=== PATIENT | male | born 1960 | race Caucasian/White ===

== ENCOUNTER 2017-01-21 11:24 | Inpatient (IN) | payer MEDICARE ==
[~2017-01-21] VITALS: Ht 182.8 cm; Wt 81.4 kg
[2017-01-21] VITALS (9 sets, daily range): BP systolic 121–145; BP diastolic 78–91
--- NOTE | ~2017-01-21 | CON ---
[place], [place] REPORT OF CONSULTATION NAME: ERROL VELAZQUEZ UNIT #: [id number] ROOM: 420 DOCTOR: MARIA GUADALUPE BEVERLY MD BIRTHDATE: [birth year] DOS: 01/22/2017 HISTORY OF PRESENT ILLNESS: This is a 56-year-old -[place] man who is severely challenged mentally. He lives at home with his who has impaired hearing, daughter also has some hearing problem and speech problem. This history was obtained from the daughter, which was rather vague. He had been telling her that some neighbors are trying to kill him and he has some paranoia here as well. He had gone to the bathroom and complained of chest pain and the daughter was concerned and he was brought to the Emergency Department. He did not have any palpitations and did not pass out. It is not clear how long the pain lasted nor do we know whether he had any sweating or nausea with it. He has not been having any difficulty breathing at night or when he is walking down and no swelling in the legs. PAST MEDICAL HISTORY: Includes dyslipidemia, essential hypertension, GERD, myocardial infarction and heart catheterization in 2009 and he had a stent deployed at that time, mentally . SOCIAL HISTORY: Quit smoking about 7 years ago. No alcohol use. Lives at home. FAMILY HISTORY: Has some mental issues as well. HOME MEDICATIONS: Include aspirin 81 daily, atorvastatin 20 daily, carvedilol 3.25 mg daily, famotidine 20 mg b.i.d., lisinopril 5 daily and omeprazole 20 mg daily. PHYSICAL EXAMINATION: GENERAL: The patient is alert, sitting. He is not able to answer questions. All nodded yes or no to questions. Complexion is fine. Afebrile. There is no thyromegaly or finger clubbing. VITAL SIGNS: Pulse is irregular at 80, blood pressure 132/82. NECK: Normal JVP. No bruit in the neck. CARDIOVASCULAR: Cardiac auscultation unremarkable. There is no cardiomegaly. Pedal pulses are palpable. EXTREMITIES: There is no edema of lower extremities. RESPIRATORY: He is not tachypneic. Few rhonchi are present, but breath sounds are fairly decent bilaterally. DIAGNOSTIC STUDIES: An ECG showed normal sinus rhythm with poor R-wave progression, possible old anteroseptal myocardial infarction. Troponin I levels are normal. IMPRESSION: This patient with known coronary artery disease had chest pain. Because of patient's mental disability, it is not clear how significant this symptom is. He has ruled out for an acute myocardial infarction. My recommendation would be to perform a Lexiscan Cardiolite study on this gentleman and Dr. De La Rosa will do this tomorrow when he comes here. I thank you on behalf of Dr. De La Rosa for this consult. [place], [place] REPORT OF CONSULTATION NAME: ERROL VELAZQUEZ UNIT #: [id number] ROOM: 420 DOCTOR: MARIA GUADALUPE BEVERLY MD BIRTHDATE: [birth year] MARIA GUADALUPE BEVERLY MD CM:CONSTR:REPORT OF CONSULTATION 1234 01/23/17 0422 interface REYMUNDO DE LA ROSA MD
--- NOTE | ~2017-01-21 | CON ---
[place], [place] REPORT OF CONSULTATION NAME: ERROL VELAZQUEZ UNIT #: [id number] ROOM: 420 DOCTOR: ESTEBAN SAUNDERS ED.D (IVETTE) BIRTHDATE: [birth year] DOS: 01/23/2017 HISTORY OF PRESENT ILLNESS: The patient is a 56-year-old male referred by the hospitalist for competency evaluation. At the present time, this patient is on the 4th Floor, at [facility]. He does have 2 sisters and his one sister, Ifrah, is wishing to file for guardianship. His other sister is in agreement with this due to the fact she has a severe hearing deficit and believes that her sister, Ifrah, would be best to be the guardian for this patient. They have contact an fire patroller in [place], [place] to file the paperwork with probate court in [facility]. This patient's family physician is Dr. Caballero. His medical history is pertinent for intellectual disability, moderate; hypertension; GERD; coronary artery disease; history of myocardial infarction. His medications include aspirin, atorvastatin, Pepcid, lisinopril, and omeprazole. 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 He does not use any substances, but he did quit smoking 7 years ago. He uses no alcoholic beverages whatsoever. This patient could not actually tell me where he was with the date. He has a significant cognitive limitation. It is clear that guardianship should be established for this patient. I spoke at length with the sister, Ifrah, and I will complete paperwork for guardianship for the patient to be able to have a guardian appointed to make all decisions on his behalf. DIAGNOSIS: Intellectual disability--moderate. RECOMMENDATIONS: In my opinion, this patient should have a guardian appointed by a probate court in [facility]. Thank you very much for this consult. ESTEBAN SAUNDERS ED.D CM:CONSTR:REPORT OF CONSULTATION 1600 01/24/17 0619 interface
--- NOTE | ~2017-01-21 | CON ---
[place], [place] REPORT OF CONSULTATION NAME: ERROL VELAZQUEZ UNIT #: [id number] ROOM: 420 DOCTOR: SUSIE MCCARTY BIRTHDATE: [birth year] DOS: HISTORY OF PRESENT ILLNESS: He is a 56-year-old man who came in with his family due to complaints of chest pain. He has a history of some intellectual disability and he lives with his sister who is his primary residential life director. He has been having some paranoid thoughts, thinks the neighbors are going to beat him up and they decided to bring him in to have him evaluated. They have been doing cardiac workup since he has been here on the floor, but psych is consulted as far as the ongoing anxiety that he seems to be having and paranoia. PAST MEDICAL HISTORY: Hypertension, GERD. He does have a history of an IL and high cholesterol. MENTAL STATUS: He is awake and alert. He seems to be oriented to himself, not necessarily to time. His speech is garbled, but he is able to make himself understood. His voice is low tone. He denies any audio or visual hallucinations, delusions or paranoia at this time. He does have some slowed processing for sure. According to the family, last night he was fearful that someone was going to get him after he heard some pounding that they believed was construction that was happening here at the hospital. They said that he has definitely been getting worse at night. He becomes very anxious and then very panicky. His appetite has been good while he has been here in the hospital as well. No complaints of pain or anything like that. DIAGNOSIS: Panic disorder with anxiety. PLAN: I added Celexa 20 mg every day to help combat that anxiety and hopefully that will help him through the day, so that he can sleep better at night. We will have social service manager help them to set up outpatient treatment as needed. His vitamin D level was also low, so we will add vitamin D dosage every week. He has very good family support and the plan according to the family who were in the room right now is that he return home under their care. We will continue to monitor him during his stay, support as needed and hopefully he will return to the least restrictive environment as soon as he is medically stable. Susie Mccarty NP CM:CONSTR:REPORT OF CONSULTATION 01/23/17 2206 interface
--- NOTE | ~2017-01-21 | ST ---
[place], [place] EXERCISE STRESS TEST REPORT NAME: [facility]QUEZ [id number] UNIT #: [id number] ROOM: 420 DOCTOR: REYMUNDO CARABALLO MD BIRTHDATE: [birth year] DOS: LEXISCAN PORTION OF THE LEXISCAN CARDIOLITE Baseline cardiogram, sinus rhythm with poor R-wave progression with nonspecific ST-T changes, 0.4 mg Lexiscan, duration of 10 seconds. FINAL IMPRESSION: No new EKG changes with Lexiscan. No chest pain with Lexiscan. No dysrhythmia with Lexiscan. Blood pressure and heart rate response was normal. Nuclear images will be reported separately. REYMUNDO CARABALLO MD CM:STRESS:EXERCISE STRESS TEST REPORT [id number] 1950 REYMUNDO CARABALLO MD
[~2017-01-21 11:24] MED LIST: ASPIRIN; ASPIRIN ADULT L81 M1 PO; ATORVASTATIN CA20 M1 PO; CARVEDILOL3.125 MG; LIPITOR80 MG; LISINOPRIL5 MG PO; PEPCID20 MG PO; PLAVIX75 MG
[2017-01-21 11:42] LABS: BASO # 0.1 10*3/uL (0.0-0.1); BASO % 0.6 % (0.0-1.0); EOS # 0.3 10*3/uL (0.0-0.4); EOS % 2.9 % (1.0-4.0); HEMATOCRIT 45.1 % (42.0-52.0); HEMOGLOBIN 15.6 g/dl (14.0-18.0); LYMPH # 2.1 10*3/uL (1.3-4.4); LYMPH % 23.6 % (27.0-41.0); MEAN CELL VOLUME 88.8 fl (80.0-94.0); MEAN CORPUSCULAR HGB 30.7 pg (27.0-31.0); MEAN CORPUSCULAR HGB CONC 34.6 g/dl (33.0-37.0); MEAN PLATELET VOLUME 10.2 fl (9.6-12.3); MONO # 0.9 10*3/uL (0.1-1.0); MONO % 9.8 % (3.0-9.0); NEUT # 5.5 10*3/uL (2.3-7.9); NEUT % 62.6 % (47.0-73.0); PLATELET COUNT AUTOMATED 307 10*3/uL (130-400); RED BLOOD COUNT 5.08 10*6/uL (4.50-5.90); RED CELL DISTRI WIDTH 12.7 % (0-14.5); WHITE BLOOD COUNT 8.7 10*3/uL (4.8-10.8)
[2017-01-21 11:58] LABS: INTERNATIONAL NORM RATIO 1.1 (2.0-3.5); PROTHROMBIN TIME 11.7 SECONDS (9.0-12.4)
[2017-01-21 11:59] LABS: ALBUMIN 3.7 gm/dl (3.1-4.5); ALKALINE PHOSPHATASE 112 U/L (45-117); BILIRUBIN, TOTAL 0.8 mg/dl (0.2-1.0); BUN 10 mg/dl (7-24); CARBON DIOXIDE 22 mmol/L (21-32); CHLORIDE 107 mmol/L (98-107); EST GLOM FILT AFRICAN AMERICAN > 60 ml/min; GLUCOSE 109 mg/dL (65-99); POTASSIUM 3.9 mmol/L (3.5-5.1); SGOT/AST 23 IU/L (3-35); SGPT/ALT 38 U/L (12-78); SODIUM 138 mmol/L (136-145); TOTAL PROTEIN 7.5 gm/dL (6.4-8.2)
[2017-01-21 12:05] LABS: TROPONIN I < 0.015 ng/ml (<0.045)
[2017-01-21] MEDS ORDERED: OMEPRAZOLE D/R20 MG PO (13:30)
[2017-01-21 18:20] LABS: CKMB 0.8 ng/ml (0.5-3.6); CPK 72 U/L (39-308)
[2017-01-21 18:21] LABS: TROPONIN I < 0.015 ng/ml (<0.045)
[2017-01-22] VITALS: BP 129/89
[2017-01-22 00:26] LABS: CPK 75 U/L (39-308)
[2017-01-22 00:28] LABS: TROPONIN I < 0.015 ng/ml (<0.045)
[2017-01-22 06:21] LABS: BASO % 0.5 % (0.0-1.0); EOS # 0.2 10*3/uL (0.0-0.4); EOS % 1.8 % (1.0-4.0); HEMATOCRIT 46.5 % (42.0-52.0); HEMOGLOBIN 15.6 g/dl (14.0-18.0); LYMPH # 2.4 10*3/uL (1.3-4.4); LYMPH % 28.5 % (27.0-41.0); MEAN CELL VOLUME 90.3 fl (80.0-94.0); MEAN CORPUSCULAR HGB 30.3 pg (27.0-31.0); MEAN CORPUSCULAR HGB CONC 33.5 g/dl (33.0-37.0); MEAN PLATELET VOLUME 10.1 fl (9.6-12.3); MONO # 0.9 10*3/uL (0.1-1.0); MONO % 10.2 % (3.0-9.0); NEUT % 58.5 % (47.0-73.0); PLATELET COUNT AUTOMATED 299 10*3/uL (130-400); RED BLOOD COUNT 5.15 10*6/uL (4.50-5.90); RED CELL DISTRI WIDTH 12.9 % (0-14.5); WHITE BLOOD COUNT 8.5 10*3/uL (4.8-10.8)
[2017-01-22 06:35] LABS: CPK 81 U/L (39-308)
[2017-01-22 06:38] LABS: TROPONIN I < 0.015 ng/ml (<0.045)
[2017-01-22 06:54] LABS: ALBUMIN 3.5 gm/dl (3.1-4.5); ALKALINE PHOSPHATASE 107 U/L (45-117); BILIRUBIN, TOTAL 0.8 mg/dl (0.2-1.0); BUN 13 mg/dl (7-24); CARBON DIOXIDE 26 mmol/L (21-32); CHLORIDE 105 mmol/L (98-107); CHOLESTEROL 96 mg/dL (<200); EST GLOM FILT AFRICAN AMERICAN > 60 ml/min; GLUCOSE 104 mg/dL (65-99); HDL CHOLESTEROL 47 mg/dl (40-60); LDL CHOLESTEROL 36 mg/dL (9-159); MAGNESIUM 2.2 mg/dL (1.5-2.1); POTASSIUM 3.8 mmol/L (3.5-5.1); SGOT/AST 18 IU/L (3-35); SGPT/ALT 37 U/L (12-78); SODIUM 139 mmol/L (136-145); TOTAL PROTEIN 7.6 gm/dL (6.4-8.2); TRIGLYCERIDES 65 mg/dl (<150); VLDL CHOLESTEROL 13 mg/dL (6-40)
[2017-01-22 07:33] LABS: VITAMIN D, 25-HYDROXY 22.2 ng/mL (30-100)
[2017-01-22 07:34] LABS: FOLIC ACID 13.91 ng/mL (>5.38)
[2017-01-22 08:00] VITALS: BP 138/82
[2017-01-22 12:00] VITALS: BP 115/75
[2017-01-22 12:34] LABS: BILIRUBIN NEGATIVE (NEGATIVE); BLOOD NEGATIVE (NEGATIVE); CLARITY CLEAR (CLEAR); COLOR YELLOW (YELLOW); GLUCOSE NEGATIVE (NEGATIVE); KETONE NEGATIVE (NEGATIVE); LEUKO ESTERASE NEGATIVE (NEGATIVE); NITRITE NEGATIVE (NEGATIVE); PROTEIN NEGATIVE (NEGATIVE); SPECIFIC GRAVITY <= 1.005 (1.005-1.030); UROBILINOGEN 0.2 E.U./dl (0.2-1.0)
[2017-01-22 12:42] LABS: EPITHELIAL CELLS 0-2; WBC 0-2 wbc/hpf (0-5)
[2017-01-22 16:00] VITALS: BP 125/81
[2017-01-22 20:00] VITALS: BP 131/56
[2017-01-23] VITALS: BP 113/77
[2017-01-23 03:00] VITALS: BP 131/85
[2017-01-23 08:00] VITALS: BP 128/75
[2017-01-23 12:00] VITALS: BP 120/79
[2017-01-23 16:00] VITALS: BP 125/82
[2017-01-23 20:00] VITALS: BP 144/77
[2017-01-24] VITALS: BP 120/73
[2017-01-24 08:02] VITALS: BP 132/82
[2017-01-24 12:00] VITALS: BP 120/74
[2017-01-24] MEDS ORDERED: HYDROXYZINE PAM25 M1 PO (13:23)
[2017-01-24] MEDS ORDERED: VITAMIN D50000 I3 PO (13:23)
[2017-01-24] MEDS ORDERED: CITALOPRAM HYDR20 MG PO (13:23)
== END 2017-01-24 15:20 | disposition home or self-care (01) | DRG 392 ==
LOC: ED 11:24 → 4E 12:20 → EDHOLD 12:20 → 4E 12:59
PROVIDERS: Hospitalist; Internal Medicine; Nurse Practitioner Family
PROC: 4A02XM4 Measurement of Cardiac Total Activity, External Approach (ICD-10-PCS; principal; 2017-01-21)
DX: K21.9 Gastro-esophageal reflux disease without esophagitis (principal); F22 Delusional disorders; I10 Essential (primary) hypertension; E78.5 Hyperlipidemia, unspecified; I25.10 Atherosclerotic heart disease of native coronary artery without angina pectoris; E78.00 Pure hypercholesterolemia, unspecified; F41.0 Panic disorder [episodic paroxysmal anxiety]; F71 Moderate intellectual disabilities; Z95.5 Presence of coronary angioplasty implant and graft; Z82.49 Family history of ischemic heart disease and other diseases of the circulatory system; I25.2 Old myocardial infarction; Z80.9 Family history of malignant neoplasm, unspecified; Z79.82 Long term (current) use of aspirin; Z79.899 Other long term (current) drug therapy; Z87.891 Personal history of nicotine dependence; Z81.8 Family history of other mental and behavioral disorders

== ENCOUNTER 2017-01-25 22:01 | Emergency (ER) | payer MEDICARE, OTHER ==
[~2017-01-25] VITALS: Ht 170.1 cm; Wt 68.0 kg
[~2017-01-25 22:01] MED LIST changes: +CITALOPRAM HYDR20 MG PO; +HYDROXYZINE PAM25 M1 PO; +OMEPRAZOLE D/R20 MG PO; +VITAMIN D50000 I3 PO
[2017-01-25 22:34] LABS: BASO # 0.1 10*3/uL (0.0-0.1); BASO % 0.5 % (0.0-1.0); EOS # 0.2 10*3/uL (0.0-0.4); EOS % 2.1 % (1.0-4.0); HEMATOCRIT 42.8 % (42.0-52.0); HEMOGLOBIN 14.7 g/dl (14.0-18.0); IG # 0.1 10*3/uL (0.0-0.1); LYMPH # 3.3 10*3/uL (1.3-4.4); MEAN CELL VOLUME 88.8 fl (80.0-94.0); MEAN CORPUSCULAR HGB 30.5 pg (27.0-31.0); MEAN CORPUSCULAR HGB CONC 34.3 g/dl (33.0-37.0); MEAN PLATELET VOLUME 9.9 fl (9.6-12.3); MONO # 1.1 10*3/uL (0.1-1.0); MONO % 10.8 % (3.0-9.0); NEUT # 5.4 10*3/uL (2.3-7.9); NEUT % 53.1 % (47.0-73.0); PLATELET COUNT AUTOMATED 304 10*3/uL (130-400); RED BLOOD COUNT 4.82 10*6/uL (4.50-5.90); RED CELL DISTRI WIDTH 12.6 % (0-14.5); WHITE BLOOD COUNT 10.1 10*3/uL (4.8-10.8)
[2017-01-25 22:49] LABS: ALBUMIN 3.7 gm/dl (3.1-4.5); ALKALINE PHOSPHATASE 98 U/L (45-117); BILIRUBIN, TOTAL 0.9 mg/dl (0.2-1.0); BUN 13 mg/dl (7-24); CARBON DIOXIDE 25 mmol/L (21-32); CHLORIDE 103 mmol/L (98-107); EST GLOM FILT AFRICAN AMERICAN > 60 ml/min; GLUCOSE 108 mg/dL (65-99); POTASSIUM 3.9 mmol/L (3.5-5.1); SGOT/AST 20 IU/L (3-35); SGPT/ALT 35 U/L (12-78); SODIUM 137 mmol/L (136-145); TOTAL PROTEIN 7.4 gm/dL (6.4-8.2)
[2017-01-25 23:12] LABS: BILIRUBIN NEGATIVE (NEGATIVE); BLOOD TRACE-INTACT (NEGATIVE); CLARITY CLEAR (CLEAR); COLOR YELLOW (YELLOW); GLUCOSE NEGATIVE (NEGATIVE); KETONE NEGATIVE (NEGATIVE); LEUKO ESTERASE NEGATIVE (NEGATIVE); NITRITE NEGATIVE (NEGATIVE); PH 5.5 (5.0-9.0); PROTEIN NEGATIVE (NEGATIVE); SPECIFIC GRAVITY <= 1.005 (1.005-1.030); UROBILINOGEN 0.2 E.U./dl (0.2-1.0)
[2017-01-25 23:20] LABS: BACTERIA TRACE; EPITHELIAL CELLS 0-2; MUCOUS TRACE; URINE REFLEX COMMENT NO (NO); WBC 0-2 wbc/hpf (0-5)
[2017-01-25 23:22] LABS: URINE AMPHETAMINES < 1000 (1000ng/ml); URINE BARBITURATES < 200 (200ng/ml); URINE COCAINE < 300 (300ng/ml)
== END 2017-01-26 00:18 | disposition home health service (06) ==
LOC: ED 22:01
PROVIDERS: Emergency Medicine
DX: F33.9 Major depressive disorder, recurrent, unspecified (principal); F41.9 Anxiety disorder, unspecified; I10 Essential (primary) hypertension; K21.9 Gastro-esophageal reflux disease without esophagitis; I25.2 Old myocardial infarction; Z79.899 Other long term (current) drug therapy

== ENCOUNTER 2017-01-25 23:40 | Inpatient (IN) | payer MEDICARE, OTHER ==
[~2017-01-25] VITALS: Ht 162.5 cm; Wt 77.6 kg
--- NOTE | ~2017-01-25 | PR ---
[place], [place] PROGRESS NOTE NAME[id number] UNIT #: [id number] ROOM: 314 DOCTOR: SSUIE MCCARTY BIRTHDATE: [birth year] DOS: 01/29/2017 CHIEF COMPLAINT: This morning, the patient looked at me and smiled. SUMMARY OF THE VISIT: He was in the dining room, eating his breakfast, did not really make eye contact. During the most of the interaction that I had with him, he would just look at me and smile and do a little laugh. They did have to give him Ativan and Geodon over the weekend for some delusions that he was having. Dr. Weber just increased Latuda yesterday, so we will see how he does with that. When I asked him if he had a good weekend, he did nod and said that he did. MENTAL STATUS EXAMINATION: He is alert and oriented at least to self. I do not believe that he is oriented to place and time. He clearly is attending to unforseen others. PLAN: Since his Latuda was just increased yesterday, we will monitor him through the day today and see how he does. He has not required more p.r.n. since the ones that he got on 01/27/2017. So, we will monitor and see what that medication change does. We will continue to try to engage him in individual and bernal milieu and discharge him to the least restrictive environment as soon as he is psychologically stable. Susie Mccatry NP CM:PNTRANS 0 SSUIE MCCARTY 01/29/17 0952 interface
--- NOTE | ~2017-01-25 | DS ---
[place], [place] DISCHARGE SUMMARY NAME: ERROL VELAZQUEZ UNIT #: [id number] ROOM: 314 DOCTOR: SUSIE MCCARTY BIRTHDATE: [birth year] DOS: 02/05/2017 SUMMARY OF THE VISIT: The patient is a 56-year-old white male who was admitted to the unit 01/26/2017 with a diagnosis of major depression. He was originally admitted to the medical floor. Once he stabilized on the medical floor, it was found that his psychiatric symptoms still needed to be managed and so he was brought to [facility]. Also, his psychiatric problems are exacerbated more because he has mild MR. He lives at home with his sisters and they provide his primary care. On admission, he had been acutely manic for approximately 3 days. He had not slept and increasingly paranoid and very on edge. He was having audio and visual hallucinations and upon arrival to the Behavioral Health Unit, he became verbally and physically threatening to staff when they addressed him as Errol rather than Nando or Dutch. PAST MEDICAL HISTORY: Includes coronary artery disease, hyperlipidemia, hypertension, GERD. He has a history of an HI and a history of bipolar as well as mild MR. ALLERGIES: He has no allergies. MENTAL STATUS ON DISCHARGE: Today, he is bright, euthymic, laughing, talking, very excited about going home, has had no further audiovisual hallucination over the past few days. He is more talkative. When ____ this morning, he did say alright and then he started talking about what was on TV, so he is doing much better from a mental status standpoint than he was when he came in. DIAGNOSIS: Major depression. DISPOSITION: He will be discharged home with his sisters who will provide his primary care. His scripts have been electronically transmitted to his pharmacy and he is discharged in stable psychiatric condition. [place], [place] DISCHARGE SUMMARY NAME: ERROL VELAZQUEZ UNIT #: [id number] ROOM: 314 DOCTOR: SUSIE MCCARTY BIRTHDATE: [birth year] Susie Mccarty NP CM:DISCHARG [phone] SUSIE ROWELIP 02/05/17 1042 interface
--- NOTE | ~2017-01-25 | PR ---
[place], [place] PROGRESS NOTE NAME: [facility]QUEZ [id number] UNIT #: [id number] ROOM: 314 DOCTOR: SUSIE MCCARTY BIRTHDATE: [birth year] DOS: 02/03/2017 CHIEF COMPLAINT: This morning, the patient smiled and waved. SUMMARY OF THE VISIT: He was again sitting in the dining room at a table by himself. When I said hello to him, he did smile and waved his hand above his head. He is essentially nonverbal. He remains confused, has had less of the mood lability and agitation overnight. He does not appear to be attending to internal stimuli at this time. No side effects are evident from his Latuda or his Depakote. He continues to need prompting and assistance with his ADLs, but he seems to be tolerating his current medications well. MENTAL STATUS EXAMINATION: He is alert. He is oriented to self, place, not to time. He is still showing improvement in his behavioral symptoms. PLAN: Discharge him to a possible placement for assistance with his ADLs and maintaining his wellbeing. We will continue to engage him in individual and bernal milieu and plan to discharge him to the least restrictive environment early next week or when he is psychiatrically stable. Susie Mccarty NP CM:DARIA [id number] SUSIE MCCARTY 02/03/17 1300 interface
--- NOTE | ~2017-01-25 | WRIGHTHP ---
[place], [place] PATIENT HISTORY AND PHYSICAL EXAM NAME: [facility]QUE[id number] UNIT #: [id number] ROOM: 314 DOCTOR: ANA GAMEZ MD BIRTHDATE: [birth year] DOS: 01/26/2017 CHIEF COMPLAINT: "Yep." SUMMARY OF THE VISIT: This is a 56-year-old white male who was initially admitted due to ongoing medical difficulties. The patient from a psychiatric standpoint suffers from mild mental retardation. He resides with his sisters and has had a significant alteration in mental status. The patient has been acutely manic and has not slept in 3 days prior to him being admitted medically. Additionally, he has been increasingly paranoid and very on edge. He is openly admitted to both visual and auditory hallucinations. Upon admission to the psychiatric unit, the patient became verbally and physically threatening to staff when they addressed him by his name Errol and stated at that time, his name is Nando or Preston. The patient apparently has a lengthy history of psychiatric illness. He is admitted now to re-stabilize on medication, to engage in individual and bernal milieu activity with the ultimate plan to return home with the least restrictive environment when psychiatrically stable. PAST MEDICAL HISTORY: Remarkable for coronary artery disease, hyperlipidemia, hypertension, GERD, history of myocardial infarction and a history of bipolar disorder as well as mild MR. MENTAL STATUS: My mental status examination this morning was somewhat limited. The patient did respond to his name when I called out Ronald. He made eye contact. He localize the word Yep and on multiple occasions, as I attempted to engage him, he would either shake his head or make inaudible sounds. He did not speak to me beyond that. He did not exhibit any agitation towards me as well. DIAGNOSIS: Bipolar, type 1, mixed, with psychotic features and mild mental retardation. PLAN: I will go ahead and start him on Latuda 40 mg at bedtime to act both as a mood stabilizer and as an antipsychotic. We will increase this as needed and as tolerated. We will discuss with medical social worker to talk to the sisters who are applying for guardianship as to where they foresee there brother being discharged once he is stable. We will help facilitate the most appropriate placement once he is stable. We will engage in individual and bernal milieu activity with the plan then to discharge to this environment. [place], [place] PATIENT HISTORY AND PHYSICAL EXAM NAME: ERROL VELAZQUEZ UNIT #: [id number] ROOM: 314 DOCTOR: ANA GAMEZ MD BIRTHDATE: [birth year] ANA GAMEZ MD CM:HISPHYS:PATIENT HISTORY AND PHYSICAL EXAMINATION ANA GAMEZ MD 01/26/1734 interface
--- NOTE | ~2017-01-25 | PR ---
[place], [place] PROGRESS NOTE NAME: [facility]QUEZ [id number] UNIT #: [id number] ROOM: 314 DOCTOR: SUSIE MCACRTY BIRTHDATE: [birth year] DOS: 02/01/2017 CHIEF COMPLAINT: This morning "I got 2 stickers." SUMMARY OF THE VISIT: The patient was seen in the dining room where he was getting ready to have breakfast. He was watching TV, laughing. He was more interactive today than he has been previously. He does have a hearing for guardianship tomorrow for possible placement. We titrated up his Depakote in the evening last night, which seems to help him. Staff report that he slept very well last night, had no crying or yelling out behavior. PLAN: His next valproic acid level is due tomorrow. We will see how that is and then continue to titrate that medication and engage him in individual and bernal milieu, discharging him to the least restrictive environment when he is psychiatrically stable. Susie Mccarty NP CM:PNALISON [phone] SUSIE MCCARTY 02/01/172154 interface
--- NOTE | ~2017-01-25 | PR ---
[place], [place] PROGRESS NOTE NAME: [facility]QUE[id number] UNIT #: [id number] ROOM: 314 DOCTOR: ANA GAMEZ MD BIRTHDATE: [birth year] DOS: 02/02/2017 CHIEF COMPLAINT: The patient gave me a thumbs up sign. SUMMARY OF THE VISIT: The patient was attempted to be interviewed in the dining area where he was sitting at a table by himself. As I approached, he nodded and gave me a thumbs up sign. He again was nonverbal with me and when he eventually did talk it was simple yep or nope. Nurses report that he continues to still exhibit mood lability and occasionally will become increasingly agitated, especially around select peers. The patient does also still seem to be responding to unforeseen others and when left alone and monitored from far you can see him responding to internal stimulate. The patient does seem to be tolerating the current medication regimen well. I see no evidence of sedation or somnolence. Likewise, I see no tardive dyskinesia or extrapyramidal symptoms. He remains grossly confused and disoriented and requires a great deal of support and redirection to maintain ADLs. MENTAL STATUS: He is alert and oriented to person, place, but not time. Mood still is labile and at times unpredictable; however, there is a steady trend in improvement. He does still experience psychotic symptoms and delusions. Memory is hard to assess because his inability or lack of desire to cooperate. PLAN: I will maintain his current psychotropic regimen. His valproic acid level is therapeutic at 92.8 and I see no side effects suggestive of valproic acid toxicity. He is tolerating the Latuda well and likewise I see no symptoms suggestive of side effects from the Latuda. We are awaiting word from the court regarding emergency guardianship so that ultimately the family can assist in placement, so that his needs are more adequately met. Meanwhile, we will continue to engage him in individual and bernal milieu activity with the plan to return to the least restrictive environment when psychiatrically stable. ANA GAMEZ MD CM:PNTRANS [phone] ANA GAMEZ MD 02/02/17 1826 interface
--- NOTE | ~2017-01-25 | PR ---
[place], [place] PROGRESS NOTE NAME: ERROL [facility]ELAZQUEZ [id number] UNIT #: [id number] ROOM: 314 DOCTOR: ANA GAMEZ MD BIRTHDATE: [birth year] DOS: 01/28/2017 CHIEF COMPLAINT: "The patient nodded." SUMMARY OF THE VISIT: The patient was interviewed in the dining area where he had his entire breakfast completely eaten. I did ask if he would like more and he nodded yes and I did direct staff to provide him with something more to eat. Nurses report that he continues to have paranoia and scanning behavior, but is much more redirectable. He does still seem to be responding to unforeseen others and did seem to be mumbling under his breath as I approached. He is tolerating the current medication regimen well, sleeping well at night and I am not seeing any leftover somnolence during the day. I am also not seeing any tardive dyskinesia or extrapyramidal symptoms. MENTAL STATUS: He is alert and oriented to self, uncertain about place or time. Mood does seem to be trending towards euthymia and affect is much more appropriate. There are no symptoms now of hypomania or lynda and there does still seem to be residual paranoia and psychotic symptoms. It is hard to test his memory due to his being somewhat nonverbal. PLAN: I will go ahead and give him vitamin D 50,000 international units on Sunday versus Sunday for ease of remembering. I will increase his Latuda from 80 to 120 mg at bedtime. I will discontinue Remeron as I do not necessarily see depression, but rather more psychotic symptoms and mood lability. I will attempt to simplify his drug regimen then. We will engage in individual and bernal milieu activity with the ultimate plan to return to the least restrictive environment when stable. ANA GAMEZ MD CM:PNTRANS 9 [phone] ANA GAMEZ MD 01/28/175 interface
--- NOTE | ~2017-01-25 | PR ---
[place], [place] PROGRESS NOTE NAME: ERROL VELAZQUEZ UNIT #: [id number] ROOM: 314 DOCTOR: SUSIE MCCARTY BIRTHDATE: [birth year] DOS: 02/04/2017 CHIEF COMPLAINT: "I'm lying in bed." SUMMARY OF THE VISIT: He was in his room. He had finished his breakfast. He is alert. He is confused, but pleasant. He was very talkative today, although his speech was garbled and difficult to understand. Staff reported that he had one episode last night where after his sister had told him that she was not going to be able to come because she had her grandchild, he started crying and yelling around 5:00 p.m. They did not end up having to give him a p.r.n. medication though. He has had no further hallucinations. PLAN: We will monitor him throughout today. Staff did talk to the sister about perhaps not telling him when she was not going to be able to come in so that he does not become anxious. We will continue to engage him in individual and bernal milieu with a plan to discharge him at the beginning of this coming week to the least restrictive environment. Susie Mccarty NP CM:DARIA [phone] SUSIE MCCARTY 02/04/17 1243 interface
--- NOTE | ~2017-01-25 | PR ---
[place], [place] PROGRESS NOTE NAME: [facility]AZQUEZ [id number] UNIT #: [id number] ROOM: 314 DOCTOR: SUSIE MCCARTY BIRTHDATE: [birth year] DOS: 01/30/2017 CHIEF COMPLAINT: This morning, the patient just smiled and nodded his head. SUMMARY OF THE VISIT: He was in the dining room, eating breakfast; he had eaten 100% of his breakfast. Staff is reporting that he is getting his p.r.n. Ativan at least twice a day, yelling out, paranoid, looking out the window, yelling they are killing my dog. He is seeing things and is very labile towards the afternoon. MENTAL STATUS EXAMINATION: He is alert. He is oriented to himself, not necessarily to place and time. He has no lynda or hypomania. He does not really make eye contact. He will look at you when you say his name and then he looks away. PLAN: We are going to start him on some Depakote to see if we can break his psychosis; we will do 50 mg twice a day and then 500 mg in the evening, check his Depakote level here in 3 days and see how he does. Continue to try to engage him in individual and bernal milieu and discharge him to the least restrictive environment as soon as he is psychologically stable. Susie Mccarty NP CM:PNTRANS 5 SUSIE MCCARTY 01/31/1710 interface
--- NOTE | ~2017-01-25 | PR ---
[place], [place] PROGRESS NOTE NAME: [facility]QUEZ [facility] [id number] UNIT #: [id number] ROOM: 314 DOCTOR: SUSIE MCCARTY BIRTHDATE: [birth year] DOS: 01/31/2017 CHIEF COMPLAINT: This morning, the patient smiled and nodded. SUMMARY OF THE VISIT: He was seen in the dining room where he was eating breakfast. He makes eye contact when you say his name, otherwise and then he immediately looks away. He does occasionally nod or shake his head in response to yes/no questions, but did not really give me any kind of verbal response. Staff report that sometimes he does in activities give them one word or yes/no answers. He has not been sleeping at night. We started him on Depakote yesterday to try and decrease his delusional behaviors. He did not report to me nor the staff to me any more of the visual hallucinations of looking at the window and saying that someone was doing something to his dog or his sister or anything like that. PLAN: I will continue to titrate the Depakote starting just with increasing the nighttime dose to 750 mg to see if we can get him some sleep. We will continue to engage him in individual and bernal milieu and discharge him to the least restrictive safe environment as soon as he is psychiatrically stable. Susie Mccarty NP CM:PNTRANS 27 SUSIE MCCARTY 01/31/172327 interface
--- NOTE | ~2017-01-25 | PR ---
[place], [place] PROGRESS NOTE NAME: ERROL VELAZQUEZ UNIT #: [id number] ROOM: 314 DOCTOR: ANA GAMEZ MD BIRTHDATE: [birth year] DOS: 01/27/2017 CHIEF COMPLAINT: The patient was nonverbal, but nodded his head. SUMMARY OF THE VISIT: The patient was interviewed as he sat in the dining area. He was watching television and he was drinking milk. As I approached, he smiled. I did ask him if he had enough, he shook his head yes. I asked him if he would prefer chocolate milk over white and again he nodded. He did not attempt to verbalize later, as I was kneeling in the hallway, talking to an elderly patient. He did walk left a little and tapped me on the shoulder gently. Nurses report he does seem to be more redirectable. He does seem to be tolerating the current medication regimen well. MENTAL STATUS: It is limited by him being somewhat nonverbal. He has at least pleasant and engaging. He maintains good eye contact and does not exhibit any type of lynda or hypomania at the present. He still does seem to be responding to unforeseen others. Hard to be able to assess memory because of his nonverbal status. PLAN: At this point, I will increase his Latuda further from 40 to 80 mg at bedtime. Continue to monitor and support. Engage in individual and bernal milieu activity. Returning to the least restrictive environment when psychiatrically stable. ANA GAMEZ MD CM:PNTRANS [id number] ANA GAMEZ MD 01/27/17 1009 interface
[2017-01-26 00:05] VITALS: BP 125/75
[2017-01-26 07:18] LABS: BASO # 0.1 10*3/uL (0.0-0.1); BASO % 0.7 % (0.0-1.0); EOS # 0.2 10*3/uL (0.0-0.4); EOS % 2.5 % (1.0-4.0); HEMATOCRIT 45.6 % (42.0-52.0); HEMOGLOBIN 15.4 g/dl (14.0-18.0); IG # 0.1 10*3/uL (0.0-0.1); LYMPH # 2.7 10*3/uL (1.3-4.4); LYMPH % 32.3 % (27.0-41.0); MEAN CELL VOLUME 89.2 fl (80.0-94.0); MEAN CORPUSCULAR HGB 30.1 pg (27.0-31.0); MEAN CORPUSCULAR HGB CONC 33.8 g/dl (33.0-37.0); MONO # 0.8 10*3/uL (0.1-1.0); MONO % 9.7 % (3.0-9.0); NEUT # 4.5 10*3/uL (2.3-7.9); PLATELET COUNT AUTOMATED 304 10*3/uL (130-400); RED BLOOD COUNT 5.11 10*6/uL (4.50-5.90); RED CELL DISTRI WIDTH 12.7 % (0-14.5); WHITE BLOOD COUNT 8.4 10*3/uL (4.8-10.8)
[2017-01-26 07:55] LABS: ALBUMIN 3.8 gm/dl (3.1-4.5); BILIRUBIN, TOTAL 1.1 mg/dl (0.2-1.0); BUN 12 mg/dl (7-24); CARBON DIOXIDE 27 mmol/L (21-32); CHLORIDE 102 mmol/L (98-107); EST GLOM FILT AFRICAN AMERICAN > 60 ml/min; GLUCOSE 94 mg/dL (65-99); POTASSIUM 3.8 mmol/L (3.5-5.1); SGOT/AST 26 IU/L (3-35); SGPT/ALT 42 U/L (12-78); SODIUM 138 mmol/L (136-145); TOTAL PROTEIN 7.7 gm/dL (6.4-8.2)
[2017-01-26 07:56] LABS: ALKALINE PHOSPHATASE 103 U/L (45-117)
[2017-01-26 08:00] VITALS: BP 108/74
[2017-01-26 08:00] LABS: THYROID STIM HORMONE (HS) 1.55 uIU/ml (0.358-4.75)
[2017-01-26 08:01] LABS: FOLIC ACID 15.65 ng/mL (>5.38); VITAMIN D, 25-HYDROXY 26.8 ng/mL (30-100)
[2017-01-26 20:00] VITALS: BP 144/86
[2017-01-27 07:47] VITALS: BP 121/86
[2017-01-27 20:22] VITALS: BP 120/76
[2017-01-28 08:22] VITALS: BP 124/78
[2017-01-28 20:00] VITALS: BP 121/79
[2017-01-29 07:57] VITALS: BP 113/85
[2017-01-29 20:00] VITALS: BP 122/74
[2017-01-30 07:30] VITALS: BP 111/72
[2017-01-30 20:01] VITALS: BP 113/78
[2017-01-31 07:59] VITALS: BP 119/81
[2017-01-31 19:39] VITALS: BP 112/68
[2017-02-01 07:52] VITALS: BP 102/75
[2017-02-01 08:07] VITALS: BP 106/74
[2017-02-01 20:07] VITALS: BP 111/81
[2017-02-02 08:05] VITALS: BP 131/67
[2017-02-02 20:02] VITALS: BP 117/81
[2017-02-03 08:00] VITALS: BP 107/69
[2017-02-03 20:32] VITALS: BP 109/60
[2017-02-04 08:05] VITALS: BP 109/80
[2017-02-04 20:00] VITALS: BP 123/79
[2017-02-05] MEDS ORDERED: LATU120T PO (07:56)
[2017-02-05] MEDS ORDERED: VITAMIN D50000 I3 PO (07:56)
[2017-02-05] MEDS ORDERED: DIVALPROEX SOD250 MG PO ×2 (07:56)
[2017-02-05] MEDS ORDERED: DIVALPROEX SOD500 MG PO (07:56)
[2017-02-05 08:00] VITALS: BP 125/79
== END 2017-02-05 13:00 | disposition home or self-care (01) | DRG 885 ==
LOC: 3N 23:40
PROVIDERS: Internal Medicine; Psychiatry & Neurology Psychiatry
DX: F31.64 Bipolar disorder, current episode mixed, severe, with psychotic features (principal); F22 Delusional disorders; I10 Essential (primary) hypertension; I25.10 Atherosclerotic heart disease of native coronary artery without angina pectoris; E78.5 Hyperlipidemia, unspecified; K21.9 Gastro-esophageal reflux disease without esophagitis; F79 Unspecified intellectual disabilities; I25.2 Old myocardial infarction; F41.9 Anxiety disorder, unspecified; F60.0 Paranoid personality disorder

== ENCOUNTER 2017-03-06 14:19 | Inpatient (IN) | payer MEDICARE, OTHER ==
[~2017-03-06] VITALS: Ht 160 cm; Wt 77.7 kg
--- NOTE | ~2017-03-06 | PR ---
[place], [place] PROGRESS NOTE NAME: ERROL HOYT [facility] #: [id number] UNIT #: [id number] ROOM: 311 DOCTOR: ROME WADSWORTH MD BIRTHDATE: [birth year] DOS: SUBJECTIVE: Errol Hoyt who is admitted to the psych unit and he is there for placement and treatment of his psychosis and medically, the patient is stable. He is not in any distress. No chest pain, no difficulty breathing. Eating his food very well and according to the medical staff, the patient does not have any acute medical problem except his paranoid ideation and we will continue patient on the present treatment for the medical and follow him. His urine culture and sensitivity did not grow any bacteria. OBJECTIVE: His blood pressure is 124/70, pulse 85, respirations 18, temperature 97.9. ROME WADSWORTH MD CM:PNTRANS [id number] ROME WADSWORTH MD 03/17/17 1228 interface
--- NOTE | ~2017-03-06 | PR ---
[place], [place] PROGRESS NOTE NAME: ERROL VELAZQUEZ [facility] #: [id number] UNIT #: [id number] ROOM: 311 DOCTOR: ROME WADSWORTH MD BIRTHDATE: [birth year] DOS: SUBJECTIVE: The patient has been admitted to the hospital with acute psychosis and he has history of paranoid ideation, essential hypertension, mental retardation, dyslipidemia, GERD, and major depression with visual hallucination and history of coronary heart disease. The patient is feeling fairly stable now. He is not in any distress today and is 1.34, which is normal. CBC is normal. Folic acid and vitamin D level are normal. Lipid profile is normal. TSH is 4.79, slightly higher. Valproic acid 101.8, which is higher than normal value of 100. OBJECTIVE: VITAL SIGNS: Blood pressure 109/73, pulse 77, respirations 18, temperature 97.9. GENERAL: The patient is stable. ROME WADSWORTH MD CM:PNTRANS 6 0 ROME WADSWORTH MD 03/10/17920 interface
--- NOTE | ~2017-03-06 | PR ---
[place], [place] PROGRESS NOTE NAME: ERROL VELAZQUEZ UNIT #: [id number] ROOM: 311 DOCTOR: ANA GAMEZ MD BIRTHDATE: [birth year] DOS: 03/12/2017 CHIEF COMPLAINT: The patient was nonverbal. SUMMARY OF THE VISIT: The patient was attempted to be interviewed as he sat in the dining area by himself. I attempted to engage him on multiple occasions with different types of questions and he stared blankly at me. He did make eye contact at least, which is better than he has been at previous times, but this is also a significant difference than upon admission when he was actually conversant. The patient did seem to be increasingly depressed over the weekend and was crying repeatedly. Nurses report that his p.o. intake also has been somewhat down over the weekend and this morning. MENTAL STATUS: My mental status was limited due to his lack of participation. He was nonverbal through the entire attempt to engage him. PLAN: I will renew his p.r.n. Ativan in case he requires p.r.n. intervention. I will change Depakote ER from 250 mg b.i.d. and 500 mg at bedtime to all that being given at bedtime, so he will now receive Depakote ER 1000 mg at bedtime. His Trintellix was increased yesterday to its maximum dose of 20 mg in the morning. I will continue to support and monitor, attempt to engage him in individual and bernal milieu activities, will ultimately discharge to the least restrictive environment when stable. ANA GAMEZ MD CM:PNTRANS 0943 ANA GAMEZ MD 03/12/17 0944 interface
--- NOTE | ~2017-03-06 | PR ---
[place], [place] PROGRESS NOTE [id number] #: [id number] ROOM: 311 DOCTOR: ANA GAMEZ MD BIRTHDATE: [birth year] DOS: 03/11/2017 CHIEF COMPLAINT: The patient gave me the thumbs up sign. SUMMARY OF THE VISIT: The patient was interviewed in the dining area where he was sitting at a table by himself. As I approached, he spontaneously gave me a double thumbs up sign and smiled this time. There were no tears unlike yesterday, when he broke into tears and sobbed almost hysterically in front of me. Nurses' report that he still continues to have mood lability and continues to have periods of time when he does cry, but he does redirect more readily. There has been no agitation or aggression. He does seem to be tolerating the current medication regimen well without any overt side effects noted. MENTAL STATUS: He is alert and oriented to self, more than likely place, uncertain to time. Mood does seem to be trending towards euthymia and affect is more appropriate. There are no symptoms of lynda or hypomania. There are no auditory or visual hallucinations. No delusions, no paranoia. Short, intermediate, and skilled nursing memory are relatively intact. PLAN: I will maintain his current dose of Depakote as his valproic acid level is therapeutic at 90.8. I will increase the Trintellix dose from 10 mg daily to 20 mg daily to combat the depressive symptomatology that was so prominent yesterday. We will engage him in individual and bernal milieu activity with the ultimate plan to return home or to the least restrictive environment when psychiatrically stable. ANA GAMEZ MD CM:PNTRANS [phone] ANA GAMEZ MD 03/11/17 1024 interface
--- NOTE | ~2017-03-06 | PR ---
[place], [place] PROGRESS NOTE NAME: ERROL VELAZQUEZ [facility] #: [id number] UNIT #: [id number] ROOM: 311 DOCTOR: ROME WADSWORTH MD BIRTHDATE: [birth year] DOS: 03/18/2017 SUBJECTIVE: The patient has been admitted to the psych acute psychosis and paranoid idea and hallucination. The patient is medically feeling much better. He denies any chest pain, no difficulty in breathing, no GI or symptoms. The patient is eating very well and he is not in any discomfort, but he still gets problem with his psychosis and delusions. OBJECTIVE: VITAL SIGNS: Blood pressure 122/76, pulse is ____, respirations 18, temperature 97.7. HEART: Regular. LUNGS: Clear. ABDOMEN: Soft. The patient is stable. ROME WADSWORTH MD CM:PNTRANS 0711 1108 ROME WADSWORTH MD 03/18/17 1109 interface
--- NOTE | ~2017-03-06 | DS ---
[place], [place] DISCHARGE SUMMARY NAME: ERROL VELAZQUEZ [facility] #: [id number] UNIT #: [id number] ROOM: 311 DOCTOR: SUSIE MCCARTY BIRTHDATE: [birth year] DOS: 03/21/2017 CHIEF COMPLAINT: The patient is sleeping. HISTORY OF PRESENT ILLNESS: He is a 56-year-old who was admitted from home to the Behavioral Health Unit after an acute change in behavior, psychosis. He has a history of mental incompetence, is mildly developmentally delayed. He does not verbally reply to any questions, but follows basic commands. He was having some issues with acute psychosis at home where he lives with family and he was brought into the Behavioral Health Unit for medication adjustment and possible placement. He is pretty well known to the unit. PAST MEDICAL HISTORY: Anxiety, auditory hallucinations, coronary artery disease, delusional disorder, dyslipidemia, hypertension, GERD. He does have the intellectual disability. He has major depressive disorder with paranoia and vitamin D deficiency. SUMMARY OF THE HOSPITAL COURSE: On arrival at the unit, he was nonverbal, was having crying, tearful episodes and becoming withdrawn. His Depakote level was monitored and his dosage adjusted as appropriate. He was also started on Trintellix to combat his depressive signs and symptoms and he has tolerated that well. His Trintellix was titrated up to 20 mg daily and he is tolerating that well. Over the time that he has been here on the unit, he has stopped having those crying, tearful episodes and also is maintaining much better eye contact. He does not always verbally respond. Occasionally, he will verbally respond, but overall he has shown improvement in his depressive signs and symptoms and he is ready for discharge. MENTAL STATUS AT DISCHARGE: He is alert. Orientation is difficult to assess, but he is oriented at least to himself, most likely to place, not to the passage of time. He is having no AV hallucinations. He has no EPS or TD. No paranoia or delusions. DIAGNOSIS: Paranoid ideations. DISPOSITION: He will be discharged to facility in [place]. His scripts will be printed and sent with him to the facility. [place], [place] DISCHARGE SUMMARY NAME: ERROL VELAZQUEZ ACC #: [id number] UNIT #: [id number] ROOM: [facility] DOCTOR: SUSIE MCCARTY BIRTHDATE: [birth year] Susie Mccarty NP CM:DISCHARG 6 2 SUSIE MCCARTY 03/21/17842 interface
--- NOTE | ~2017-03-06 | PR ---
[place], [place] PROGRESS NOTE NAME: ERROL VELAZQUEZ UNIT #: [id number] ROOM: 311 DOCTOR: ANA GAMEZ MD BIRTHDATE: [birth year] DOS: 03/10/2017 CHIEF COMPLAINT: "The patient started crying as I approached." SUMMARY OF THE VISIT: The patient was interviewed in his room. He was initially looking out the window. As I approached to start to talk to him, he burst into tears, stating that he wanted to leave. As I reassured him that he would not be here much longer, he stopped his crying. He does appear very despondent and depressed and mood does seem to be more down than it has been lately. He seems to be coupling mood lability with his depression. There was no agitation or aggression noted. MENTAL STATUS: He is alert and oriented to self. Unclear if he knows hospital, certainly not to time. Mood is more labile, mixing both lynda with the depression. There is no voice paranoia, although he is still somewhat resistive to talking and opening up. Nurses report he has voiced that he is hearing voices still. ASSESSMENT AND PLAN: At the present time will be to go ahead and add Trintellix 10 mg a day to combat the depressive symptomatology that is present with the mood lability, maintain his other psychotropics. Plan is then to discharge when psychiatrically stable. ANA GAMEZ MD CM:PNTRANS 0832 [id number] ANA GAMEZ MD 03/10/17 1002 interface
--- NOTE | ~2017-03-06 | DS ---
[place], [place] DISCHARGE SUMMARY NAME: ERROL VELAZQUEZ [facility] #: [id number] UNIT #: [id number] ROOM: 311 DOCTOR: ANA GAMEZ MD BIRTHDATE: [birth year] DOS: 03/19/2017 CHIEF COMPLAINT: "The voices were bad." HISTORY OF PRESENT ILLNESS: This is a 56-year-old white male who is well known to me from a previous psychiatric admission to the [facility]. He is initially admitted to the [facility] because of an increase in his paranoia and auditory hallucinations. The patient has been responding to unforeseen others and has been noncompliant with his medication. He has had a significant decline in his ADLs and has not been eating or drinking well. Because of his decline, family brought him to the Emergency Room to be evaluated and he was subsequently admitted to the [facility]. PAST MEDICAL HISTORY: Remarkable for hypertension, hyperlipidemia, GERD, vitamin D deficiency, and prediabetes. SUMMARY OF THE HOSPITAL COURSE: The patient was admitted to the unit where he was initially started on Latuda 40 mg at bedtime. This was rapidly increased to 80 mg at bedtime, but did not seem to impact positively on his psychotic symptoms. This was later discontinued in lieu of Invega 6 mg in the morning. He tolerated the Invega well, exhibiting no extrapyramidal symptoms, tardive dyskinesia or any other side effects. It became very evident during the initial part of his stay that he was also suffering from a secondary depression as he would often times burst into tears for no apparent reason. Sleep and appetite were poor. He was started initially on Trintellix 10 mg a day and this dose was increased to its maximum dose of 20 mg a day. Later, because of continued poor sleep and appetite despite his other symptoms of depression improving, Remeron was added as an augmenting agent with the Trintellix at 15 mg a day. With the combination of Remeron, Trintellix, and Invega, the patient's symptomatology subsided. He became much more pleasant and conversant, although most of his conversations tended to be on the short side. He attended to his ADLs with much less prompting. There was no agitation. There was no aggression and there were no side effects from the medications themselves. Much of his latter part of his hospital stay was focused on finding appropriate placement for him as we waited for the PASRR and an appropriate facility to meet his needs. He was discharged when these elements were met. MENTAL STATUS AT DISCHARGE: The patient is alert and oriented to person, place, not necessarily to time. Mood does seem to be more euthymic. Affect more appropriate. There are no symptoms of lynda or hypomania. The psychotic symptoms seemed to have abated. Memory does have gaps. FINAL DIAGNOSIS: Schizoaffective disorder. PLAN: The patient's prescriptions have been E-scribed to [facility]. He will be discharged then to the appropriate facility once his PASRR is completed. [place], [place] DISCHARGE SUMMARY NAME: ERROL VELAZQUEZ UNIT #: [id number] ROOM: 311 DOCTOR: ANA GAMEZ MD BIRTHDATE: [birth year] ANA GAMEZ MD CM:DISCHARG [phone] ANA GAMEZ MD 03/19/17 0858 interface
[~2017-03-06 14:19] MED LIST changes: -HYDROXYZINE PAM25 MG PO
[2017-03-06] MEDS ORDERED: HYDROXYZINE PAM25 MG PO (14:23)
[2017-03-06 16:30] VITALS: BP 113/82
[2017-03-06 20:32] VITALS: BP 116/92
[2017-03-07 06:54] LABS: HEMATOCRIT 45.6 % (42.0-52.0); HEMOGLOBIN 15.4 g/dl (14.0-18.0); MEAN CELL VOLUME 91.9 fl (80.0-94.0); MEAN CORPUSCULAR HGB CONC 33.8 g/dl (33.0-37.0); MEAN PLATELET VOLUME 9.7 fl (9.6-12.3); PLATELET COUNT AUTOMATED 143 10*3/uL (130-400); RED BLOOD COUNT 4.96 10*6/uL (4.50-5.90); RED CELL DISTRI WIDTH 13.7 % (0-14.5)
[2017-03-07 06:58] LABS: HEMOGLOBIN A1c 6.2 % (4.8-5.6)
[2017-03-07 07:21] LABS: LYMPHOCYTE # 2.9 10*3/uL (1.3-4.4); METAMYELOCYTES 3 % (0-0); MONOCYTE # 0.9 10*3/uL (0.1-1.0); NEUTROPHIL # 6.9 10*3/uL (2.3-7.9); NEUTROPHILS 63 % (47-73); TOTAL CELLS COUNTED 100 #CELLS
[2017-03-07 07:22] LABS: PLATELET SUFFICIENCY NORMAL (NORMAL)
[2017-03-07 07:45] LABS: THYROID STIM HORMONE (HS) 4.79 uIU/ml (0.358-4.75)
[2017-03-07 08:00] VITALS: BP 107/75
[2017-03-07 08:45] LABS: VITAMIN D, 25-HYDROXY 49.9 ng/mL (30-100)
[2017-03-07 08:46] LABS: FOLIC ACID 13.04 ng/mL (>5.38)
[2017-03-07 20:03] VITALS: BP 120/80
[2017-03-08 07:56] LABS: BASO # 0.1 10*3/uL (0.0-0.1); BASO % 1.1 % (0.0-1.0); EOS # 0.3 10*3/uL (0.0-0.4); EOS % 2.8 % (1.0-4.0); HEMATOCRIT 46.1 % (42.0-52.0); HEMOGLOBIN 15.5 g/dl (14.0-18.0); IG # 0.2 10*3/uL (0.0-0.1); LYMPH # 2.6 10*3/uL (1.3-4.4); LYMPH % 28.6 % (27.0-41.0); MEAN CELL VOLUME 93.5 fl (80.0-94.0); MEAN CORPUSCULAR HGB 31.4 pg (27.0-31.0); MEAN CORPUSCULAR HGB CONC 33.6 g/dl (33.0-37.0); MEAN PLATELET VOLUME 9.5 fl (9.6-12.3); MONO # 1.4 10*3/uL (0.1-1.0); MONO % 14.9 % (3.0-9.0); NEUT # 4.6 10*3/uL (2.3-7.9); NEUT % 50.1 % (47.0-73.0); PLATELET COUNT AUTOMATED 127 10*3/uL (130-400); RED BLOOD COUNT 4.93 10*6/uL (4.50-5.90); RED CELL DISTRI WIDTH 13.9 % (0-14.5); WHITE BLOOD COUNT 9.2 10*3/uL (4.8-10.8)
[2017-03-08 08:07] VITALS: BP 124/90
[2017-03-08 19:35] VITALS: BP 122/78
[2017-03-09 08:09] VITALS: BP 104/77
[2017-03-09 20:00] VITALS: BP 109/73
[2017-03-10 07:45] VITALS: BP 121/82
[2017-03-10 19:48] VITALS: BP 108/87
[2017-03-11 07:46] VITALS: BP 110/90
[2017-03-11 08:49] VITALS: BP 118/90
[2017-03-11 20:10] VITALS: BP 121/84
[2017-03-12 08:00] VITALS: BP 118/85
[2017-03-12 16:58] VITALS: BP 118/80
[2017-03-13 08:01] VITALS: BP 109/73
[2017-03-13 13:18] LABS: BASO # 0.1 10*3/uL (0.0-0.1); BASO % 0.8 % (0.0-1.0); EOS # 0.1 10*3/uL (0.0-0.4); EOS % 1.2 % (1.0-4.0); HEMATOCRIT 45.9 % (42.0-52.0); HEMOGLOBIN 15.6 g/dl (14.0-18.0); IG # 0.1 10*3/uL (0.0-0.1); LYMPH # 2.3 10*3/uL (1.3-4.4); LYMPH % 35.8 % (27.0-41.0); MEAN CELL VOLUME 91.8 fl (80.0-94.0); MEAN CORPUSCULAR HGB 31.2 pg (27.0-31.0); MEAN PLATELET VOLUME 9.5 fl (9.6-12.3); MONO # 0.7 10*3/uL (0.1-1.0); MONO % 11.2 % (3.0-9.0); NEUT # 3.2 10*3/uL (2.3-7.9); NEUT % 49.5 % (47.0-73.0); PLATELET COUNT AUTOMATED 145 10*3/uL (130-400); RED CELL DISTRI WIDTH 14.1 % (0-14.5); WHITE BLOOD COUNT 6.5 10*3/uL (4.8-10.8)
[2017-03-13 13:49] LABS: ALBUMIN 3.3 gm/dl (3.1-4.5); ALKALINE PHOSPHATASE 66 U/L (45-117); BILIRUBIN, TOTAL 0.6 mg/dl (0.2-1.0); BUN 20 mg/dl (7-24); CARBON DIOXIDE 26 mmol/L (21-32); CHLORIDE 99 mmol/L (98-107); EST GLOM FILT AFRICAN AMERICAN > 60 ml/min; GLUCOSE 152 mg/dL (65-99); POTASSIUM 4.1 mmol/L (3.5-5.1); SGOT/AST 16 IU/L (3-35); SGPT/ALT 29 U/L (12-78); SODIUM 135 mmol/L (136-145); TOTAL PROTEIN 7.2 gm/dL (6.4-8.2)
[2017-03-13 16:45] VITALS: BP 118/80
[2017-03-13 20:00] VITALS: BP 112/88
[2017-03-14 08:00] VITALS: BP 110/86
[2017-03-14 20:16] VITALS: BP 110/90
[2017-03-15 07:37] LABS: BUN 20 mg/dl (7-24); CARBON DIOXIDE 26 mmol/L (21-32); CHLORIDE 102 mmol/L (98-107); EST GLOM FILT AFRICAN AMERICAN > 60 ml/min; GLUCOSE 90 mg/dL (65-99); POTASSIUM 4.1 mmol/L (3.5-5.1); SODIUM 136 mmol/L (136-145)
[2017-03-15 07:53] VITALS: BP 123/85
[2017-03-15 15:04] LABS: BILIRUBIN NEGATIVE (NEGATIVE); BLOOD TRACE-LYSED (NEGATIVE); CLARITY SL CLOUDY (CLEAR); COLOR YELLOW (YELLOW); GLUCOSE NEGATIVE (NEGATIVE); KETONE NEGATIVE (NEGATIVE); LEUKO ESTERASE NEGATIVE (NEGATIVE); NITRITE NEGATIVE (NEGATIVE); PROTEIN NEGATIVE (NEGATIVE); SPECIFIC GRAVITY 1.015 (1.005-1.030)
[2017-03-15 15:10] LABS: MUCOUS TRACE; RBC 0-2 rbc/hpf (0-2); URINE REFLEX COMMENT YES (NO); WBC 16-20 wbc/hpf (0-5)
[2017-03-15 20:17] VITALS: BP 135/81
[2017-03-16 08:10] VITALS: BP 119/82
[2017-03-16 20:08] VITALS: BP 115/69
[2017-03-17 07:59] VITALS: BP 124/78
[2017-03-17 20:01] VITALS: BP 122/76
[2017-03-18 08:50] VITALS: BP 132/74
[2017-03-18 20:00] VITALS: BP 121/66
[2017-03-19 07:48] VITALS: BP 119/83
[2017-03-19] MEDS ORDERED: VITAMIN D50000 I3 PO (07:49)
[2017-03-19] MEDS ORDERED: PALIPERIDONE ER6 MG PO (07:49)
[2017-03-19] MEDS ORDERED: DIVALPROEX SOD500 M1 PO (07:49)
[2017-03-19] MEDS ORDERED: BRIN20TA PO (07:49)
[2017-03-19] MEDS ORDERED: MIRTAZAPINE15 M2 PO (07:49)
[2017-03-19 19:50] VITALS: BP 121/66
[2017-03-20 07:39] VITALS: BP 122/70
[2017-03-20 19:57] VITALS: BP 120/70
[2017-03-21 07:47] VITALS: BP 110/50
[2017-03-21 09:15] VITALS: BP 120/70
[2017-03-21 16:44] VITALS: BP 117/78
[2017-03-21 20:10] VITALS: BP 130/72
[2017-03-22 08:00] VITALS: BP 123/77
== END 2017-03-22 13:22 | DRG 885 ==
LOC: EDHOLD 14:19 → 3N 14:45
PROVIDERS: Hospitalist; Internal Medicine; Psychiatry & Neurology Psychiatry
DX: F25.9 Schizoaffective disorder, unspecified (principal); E44.1 Mild protein-calorie malnutrition; I10 Essential (primary) hypertension; F33.9 Major depressive disorder, recurrent, unspecified; F23 Brief psychotic disorder; E87.1 Hypo-osmolality and hyponatremia; F79 Unspecified intellectual disabilities; I34.0 Nonrheumatic mitral (valve) insufficiency; F29 Unspecified psychosis not due to a substance or known physiological condition; E78.5 Hyperlipidemia, unspecified; K21.9 Gastro-esophageal reflux disease without esophagitis; I25.10 Atherosclerotic heart disease of native coronary artery without angina pectoris; F41.9 Anxiety disorder, unspecified; E55.9 Vitamin D deficiency, unspecified; F22 Delusional disorders; R73.03 Prediabetes; D72.810 Lymphocytopenia; R09.81 Nasal congestion; R94.6 Abnormal results of thyroid function studies; Z68.30 Body mass index [BMI] 30.0-30.9, adult; Z95.5 Presence of coronary angioplasty implant and graft; Z82.49 Family history of ischemic heart disease and other diseases of the circulatory system; Z80.9 Family history of malignant neoplasm, unspecified; Z79.899 Other long term (current) drug therapy

== ENCOUNTER → 2017-03-06 | Emergency (ER) | payer MEDICARE, OTHER ==
[~2017-03-06] VITALS: Wt 79.4 kg
[~2017-03-06] MED LIST changes: +DIVALPROEX SOD250 MG PO; +DIVALPROEX SOD500 MG PO; +HYDROXYZINE PAM25 MG PO; +LATU120T PO
[2017-03-06 13:17] LABS: HEMATOCRIT 45.5 % (42.0-52.0); HEMOGLOBIN 15.5 g/dl (14.0-18.0); MEAN CORPUSCULAR HGB CONC 34.1 g/dl (33.0-37.0); MEAN PLATELET VOLUME 9.7 fl (9.6-12.3); PLATELET COUNT AUTOMATED 131 10*3/uL (130-400); RED CELL DISTRI WIDTH 13.4 % (0-14.5); WHITE BLOOD COUNT 11.1 10*3/uL (4.8-10.8)
[2017-03-06 13:35] LABS: ALBUMIN 3.1 gm/dl (3.1-4.5); ALKALINE PHOSPHATASE 67 U/L (45-117); BILIRUBIN, TOTAL 0.5 mg/dl (0.2-1.0); BUN 16 mg/dl (7-24); CARBON DIOXIDE 22 mmol/L (21-32); CHLORIDE 99 mmol/L (98-107); EST GLOM FILT AFRICAN AMERICAN > 60 ml/min; GLUCOSE 103 mg/dL (65-99); POTASSIUM 4.3 mmol/L (3.5-5.1); SGOT/AST 17 IU/L (3-35); SGPT/ALT 22 U/L (12-78); SODIUM 131 mmol/L (136-145); TOTAL PROTEIN 6.9 gm/dL (6.4-8.2); TROPONIN I 0.017 ng/ml (<0.045)
[2017-03-06 13:36] LABS: EOSINOPHIL # 0.1 10*3/uL (0-0.4); EOSINOPHILS 1 % (1-4); LYMPHOCYTE # 3.1 10*3/uL (1.3-4.4); MONOCYTE # 1.3 10*3/uL (0.1-1.0); MYELOCYTES 1 % (0-0); NEUTROPHIL # 6.4 10*3/uL (2.3-7.9); NEUTROPHILS 58 % (47-73); PLATELET SUFFICIENCY NORMAL (NORMAL); TOTAL CELLS COUNTED 100 #CELLS
[2017-03-06 13:38] LABS: BILIRUBIN NEGATIVE (NEGATIVE); BLOOD TRACE-INTACT (NEGATIVE); CLARITY CLEAR (CLEAR); COLOR YELLOW (YELLOW); GLUCOSE NEGATIVE (NEGATIVE); KETONE NEGATIVE (NEGATIVE); LEUKO ESTERASE NEGATIVE (NEGATIVE); NITRITE NEGATIVE (NEGATIVE); PROTEIN NEGATIVE (NEGATIVE); SPECIFIC GRAVITY <= 1.005 (1.005-1.030); UROBILINOGEN 0.2 E.U./dl (0.2-1.0)
[2017-03-06 13:53] LABS: URINE REFLEX COMMENT NO (NO)
== END ==
LOC: ED 12:39
PROVIDERS: Emergency Medicine
DX: F60.0 Paranoid personality disorder (principal); K21.9 Gastro-esophageal reflux disease without esophagitis; F41.9 Anxiety disorder, unspecified; I25.10 Atherosclerotic heart disease of native coronary artery without angina pectoris; E78.5 Hyperlipidemia, unspecified; I10 Essential (primary) hypertension; I25.2 Old myocardial infarction; F32.9 Major depressive disorder, single episode, unspecified; Z95.5 Presence of coronary angioplasty implant and graft; Z79.82 Long term (current) use of aspirin; Z79.899 Other long term (current) drug therapy

== ENCOUNTER → 2022-06-14 | Outpatient (CLI) | payer MEDICARE, MEDICAID ==
[~2022-06-14] MED LIST changes: +BRIN20TA PO; +DIVALPROEX SOD500 M1 PO; +HYDROXYZINE PAM25 MG PO; +MIRTAZAPINE15 M2 PO; +PALIPERIDONE ER6 MG PO
== END | disposition home or self-care (01) ==
LOC: CARD 08:14
PROVIDERS: ATTEND Internal Medicine Cardiovascular Disease
DX: I25.2 Old myocardial infarction (principal)